=== PATIENT | female | born 1965 | race Caucasian/White ===

== ENCOUNTER 2016-11-30 06:49 | Day surgery (SDC) | payer OTHER ==
[2016-11-29 10:10] VITALS: BMI 27.7
--- NOTE | 2016-11-30 05:37 | HP ---
SHORT STAY HISTORY AND PHYSICAL HISTORY OF PRESENT ILLNESS: This is a 51-year-old female referred to me by Dr. Sylvie Fairchild because of abdominal pain, nausea, and also history of intermittent diarrhea. The patient also has a family history of colon cancer. Apparently, her mother had colon cancer. The patient never had a colonoscopy. The patient's abdominal pain is predominantly in the epigastric area and right upper quadrant. She is status post cholecystectomy. She had an abdominal sonogram which came back negative for any pathology. The patient comes in for an EGD and a colonoscopy because of abdominal pain, nausea, diarrhea, and also a family history of colon cancer. ALLERGIES: PENICILLINS, SULFA. MEDICAL ILLNESSES: 1. Hypothyroidism. 2. Hypertension. 3. Osteoarthritis. 4. History of lupus. 5. Migraines. 6. History of kidney stones. 7. Status post cholecystectomy. 8. Status post splenectomy. 9. Status post hysterectomy. 10. History of left knee replacement. PHYSICAL EXAMINATION: VITAL SIGNS: Pulse is 70, blood pressure 130/70. HEENT: Conjunctivae clear. CARDIOVASCULAR SYSTEM: First and second heart sounds normal. LUNGS: Clear to auscultation. ABDOMEN: Soft to palpate. Abdomen is tender over the epigastric area and also over the right lower quadrant. There is no rebound or guarding. No organomegaly. No masses. Bowel sounds are normal. ADMITTING DIAGNOSES: Abdominal pain, nausea, history of diarrhea. She also has a family history of colon cancer. PLAN: EGD and colonoscopy. MTDD
[2016-11-30] MEDS ORDERED: Vancomycin HCl 500 MG VIAL ONE (08:25)
[2016-11-30] MEDS ORDERED: Vancomycin HCl 500 MG in Sodium Chloride 0.9% 100 ML IVPB SCH (08:30)
[2016-11-30] MEDS ORDERED: Propofol 200 MG/20 ML VIAL ONE (08:56)
[2016-11-30] MEDS ORDERED: Promethazine HCl 25 MG/ML VIAL ONE (09:51)
--- NOTE | 2016-12-01 01:53 | OP ---
DATE OF SURGERY: 11/30/2016 OPERATIVE PROCEDURE: Colonoscopy with biopsy. PREOPERATIVE DIAGNOSES: A 51-year-old female with abdominal pain, diarrhea, and also fami ly history of colon cancer. The patient is undergoing colonoscopy. POSTOPERATIVE DIAGNOSIS: Normal colonoscopy. Random biopsies were obtained with transverse colon, sigmoid colon to rule out microscopic colitis. PROCEDURE IN DETAIL: The patient was placed on her left lateral position and was given sedation by Anesthesia Department. A rectal exam was done before the scope was advanced into the rectum. No le sions felt on rectal exam. A Pentax video colonoscope was introduced into the rectum and advanced a ll the way into the cecum. Ileocecal area, cecum, ascending colon, no pathology seen. The hepatic flexure, transverse colon, splenic flexure, descending colon, sigmoid colon, no lesions seen. Rectu m showed hemorrhoids. Random biopsies from the distal transverse colon, sigmoid colon area.
--- NOTE | 2016-12-01 05:43 | OP ---
ESOPHAGOGASTRODUODENOSCOPIES AND BIOPSIES PREOPERATIVE DIAGNOSIS: Abdominal pain and nausea. POSTOPERATIVE DIAGNOSES: Gastric polyps, multiple indicative of hyperplastic polyp. Otherwise, the exam was normal. PROCEDURE IN DETAIL: The patient was placed on the left lateral position and was given sedation by Anesthesia Department. A Pentax video gastroscope under direct vision was passed down the oropharyn x, past the gastroesophageal junction, into the stomach and subsequently duodenum. The esophageal m ucosa was normal. The GE junction, no pathology seen. Retroflexion failed to show any lesions in t he fundus or cardia. The patient had multiple tiny polyps. Endoscopically, they appeared to be hyp erplastic polyps. Two of them were removed with biopsy forceps. The gastric antrum, no pathology s een. The duodenal bulb and descending duodenum, no pathology seen. The stomach was decompressed an d the scope was removed. DISCHARGE PLANNING: This is a 51-year-old female who came in for an EGD and colonoscopy. The EGD showed gastric polyps. The colonoscopy was basically negative. DISCHARGE RECOMMENDATIONS: 1. The patient advised to call me if she develops abdominal pain, hematochezia. 2. In the absence of any of her symptoms, come back to me next week.
== END 2016-11-30 12:36 | disposition home or self-care (01) ==
LOC: SDC 06:49
PROVIDERS: ATTEND Internal Medicine Gastroenterology
PROC: 0DJD8ZZ Inspection of Lower Intestinal Tract, Via Natural or Artificial Opening Endoscopic (ICD-10-PCS; principal; 2016-11-30)
PROC: 0DB68ZX Excision of Stomach, Via Natural or Artificial Opening Endoscopic, Diagnostic (ICD-10-PCS; principal; 2016-11-30)
DX: K31.7 Polyp of stomach and duodenum (principal); K63.89 Other specified diseases of intestine; K64.9 Unspecified hemorrhoids; E03.9 Hypothyroidism, unspecified; I10 Essential (primary) hypertension; M19.90 Unspecified osteoarthritis, unspecified site; M32.9 Systemic lupus erythematosus, unspecified; G43.909 Migraine, unspecified, not intractable, without status migrainosus; Z90.81 Acquired absence of spleen; Z90.49 Acquired absence of other specified parts of digestive tract; Z90.710 Acquired absence of both cervix and uterus; Z90.89 Acquired absence of other organs; Z96.653 Presence of artificial knee joint, bilateral; Z87.442 Personal history of urinary calculi; Z80.0 Family history of malignant neoplasm of digestive organs
CPT/HCPCS: 88305; 88312; 96374; 96375; J2550; J2704; J3370

== ENCOUNTER 2017-10-31 07:58 | Outpatient (CLI) | payer OTHER ==
--- NOTE | 2017-10-31 10:37 | ULT ---
ULTRASOUND ABDOMEN: Date: 10/31/17 HISTORY: Elevated LFTs. FINDINGS: Comparison made with exam of 11/24/16. The liver demonstrates increased echogenicity consistent with fatty infiltration. No focal mass or in trahepatic ductal dilatation is seen. The patient is status post cholecystectomy and splenectomy. The common duct measures 5.0 mm in diameter. The pancreas is not well visualized due to overlying bowel gas. The visualized portions of the aorta and IVC are normal. No hydronephrosis seen on either side. There is a 1.8 cm complex cyst arising from the left kidney. No free fluid is seen. IMPRESSION: 1. Fatty liver. 2. Status post cholecystectomy and splenectomy. 3. Complex 1.8 cm left renal cyst. This should be evaluated with CT scan (with and without IV contra st). POS: OFF
== END 2017-10-31 07:59 | disposition home or self-care (01) ==
LOC: SCSULT 07:58
PROVIDERS: ATTEND Physician Assistant
DX: R79.89 Other specified abnormal findings of blood chemistry (principal); K76.0 Fatty (change of) liver, not elsewhere classified; N28.1 Cyst of kidney, acquired; Z90.49 Acquired absence of other specified parts of digestive tract; Z90.81 Acquired absence of spleen
CPT/HCPCS: 76700

== ENCOUNTER 2017-11-28 20:52 | Emergency (ER) | payer OTHER ==
[2017-11-28] MEDS ORDERED: Fentanyl 100 MCG/2 ML VIAL ONE (21:31)
[2017-11-28] MEDS ORDERED: Lorazepam 2 MG/ML VIAL ONE (21:31)
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
== END 2017-11-28 23:59 | disposition home or self-care (01) ==
LOC: ERS 20:52
DX: M48.02 Spinal stenosis, cervical region (principal); G89.29 Other chronic pain; M54.2 Cervicalgia; E03.9 Hypothyroidism, unspecified; E78.5 Hyperlipidemia, unspecified; F17.210 Nicotine dependence, cigarettes, uncomplicated; Z79.899 Other long term (current) drug therapy
CPT/HCPCS: 72141; 96372; J2060; J3010

== ENCOUNTER 2018-03-03 09:30 | Day surgery (SDC) | payer OTHER ==
[2018-03-02 11:01] VITALS: BMI 29.2
[2018-03-03] MEDS ORDERED: CEFAZOLIN 2 GM/50 ML BAG ONE (10:25)
[2018-03-03 10:35] LABS: Hemoglobin 15.3 g/dL (12.0-16.0); Mean Corpuscular HGB CONC 33.2 g/dL (32.0-36.0); Mean Corpuscular Hemoglobin 32.6 pg (27.0-31.0); Mean Corpuscular Volume 98.1 fL (78.0-98.0); Mean Platelet Volume 6.9 fL (7.4-10.4); Platelet Count 482 thou/uL (130-400); RBC Distribution Width 11.5 % (11.5-14.5); Red Blood Cell (RBC) Count 4.71 mill/uL (4.20-5.40); White Blood Cell (WBC) Count 9.4 thou/uL (4.8-10.8)
[2018-03-03] MEDS ORDERED: Fentanyl 100 MCG/2 ML VIAL ONE ×5 (10:41→14:47)
[2018-03-03 10:54] LABS: Anion Gap 11 mmol/L (10-20); BUN (Urea Nitrogen) 17 mg/dL (9.8-20.1); Calc. Creatinine Clearance 125 mL/min (70-130); Calcium 9.2 mg/dL (7.8-10.44); Carbon Dioxide 27 mmol/L (22-29); Chloride 108 mmol/L (98-107); Estimated GFR-MDRD 82; Glucose 98 mg/dL (70-105); Potassium 4.1 mmol/L (3.5-5.1); Sodium 142 mmol/L (136-145)
[2018-03-03] MEDS ORDERED: Midazolam HCl 2 mg/2 ml Vial ONE (12:20)
[2018-03-03] MEDS ORDERED: Sodium Chloride 0.9% 10 ML ONE (12:35)
[2018-03-03] MEDS ORDERED: Ketorolac Tromethamine 30 MG/ML VIAL ONE (14:47)
[2018-03-03] MEDS ORDERED: Promethazine HCl 25 MG/ML VIAL ONE (14:58)
--- NOTE | 2018-03-03 16:25 | OP ---
DATE OF PROCEDURE: 03/03/2018 [employer] REPRESENTATIVE: Nic. PROCEDURES PERFORMED: Anterior cervical diskectomy C5-C6, interbody arthrodesis, intervertebral Biomechanical device, local morselized autograft, demineralized bone matrix, anterior-titanium instrumentation, C5-C6. DESCRIPTION OF PROCEDURE: The patient was brought to the operating room and intubated. She was positioned supine with the head in modest extension on a gel-filled donut. An incision was made in the right precervical and dissecting medial to the sternocleidomastoid muscle, identifying the anterior cervical spinal, and the level was confirmed by x-ray. We placed distraction across C5-C6, and using operative microscope and microdissection techniques, completely compressed the intervertebral disk from foramen to foramen at C5-C6. Bony endplates then decorticated for the purpose of arthrodesis and appropriate-sized intervertebral biomechanical PEEK device was brought on the field and filled with demineralized bone matrix and local morselized autograft, and tapped into place securely at C5-C6. Next, an anterior plate was brought into the field and secured to C5 and C6 using two 14-mm screws at each level. The wound was then extensively irrigated and maximum hemostasis was secured, and the wound was closed in anatomic layers. Job ID: [id number]
[2018-03-03] MEDS ORDERED: Ondansetron PF 4 MG/2 ML Vial ONE (20:29)
[2018-03-03] MEDS ORDERED: Dexamethasone 20 MG/5 ML VIAL ONE (20:29)
[2018-03-03] MEDS ORDERED: PROPOFOL 200 MG/20 ML VIAL ONE (20:29)
== END 2018-03-03 16:33 | disposition home or self-care (01) ==
LOC: SDC 09:30
PROVIDERS: ATTEND Neurological Surgery
PROC: 0RB30ZZ Excision of Cervical Vertebral Disc, Open Approach (ICD-10-PCS; principal; 2018-03-03)
PROC: 0RG10A0 Fusion of Cervical Vertebral Joint with Interbody Fusion Device, Anterior Approach, Anterior Column, Open Approach (ICD-10-PCS; principal; 2018-03-03)
PROC: 0RG1070 Fusion of Cervical Vertebral Joint with Autologous Tissue Substitute, Anterior Approach, Anterior Column, Open Approach (ICD-10-PCS; principal; 2018-03-03)
PROC: 0RG10J0 Fusion of Cervical Vertebral Joint with Synthetic Substitute, Anterior Approach, Anterior Column, Open Approach (ICD-10-PCS; principal; 2018-03-03)
DX: M50.122 Cervical disc disorder at C5-C6 level with radiculopathy (principal); K21.9 Gastro-esophageal reflux disease without esophagitis; Z88.0 Allergy status to penicillin; Z88.2 Allergy status to sulfonamides; Z88.8 Allergy status to other drugs, medicaments and biological substances
CPT/HCPCS: 36415; 76001; 80048; 85027; 93005; 93010; 96374; C1713; C1768; C1776; J1100; J1885; J2250; J2405; J2550; J2704; J3010; J3490

== ENCOUNTER 2018-03-17 09:03 | Outpatient (CLI) | payer OTHER ==
--- NOTE | 2018-03-17 10:57 | RAD ---
CERVICAL SPINE 3 VIEWS: DATE: 03/17/2018. COMPARISON: None. HISTORY: Cervical spine pain, reevaluate cervical spine following surgery. FINDINGS: Open mouth odontoid view demonstrates a normal-appearing dens in C1-2 articulation. There is lateral osteophyte formation noted bilaterally of the C1-2 articulation. There is anterior diskectomy and fu junito hardware at C5-6, new when compared to a cervical spine MRI performed 11/28/2017. There is diffu se soft tissue swelling involving the prevertebral space suggesting nonspecific soft tissue swelling associated with recent surgery. Clinical correlation is essential. There is no significant anteroli sthesis or retrolisthesis. No evidence for hardware failure. Frontal imaging demonstrates prominent multilevel left-sided facet and uncovertebral osteophyte forma tion, most prominent at C4-5, C5-6, and C6-7. IMPRESSION: Postoperative and degenerative changes of the cervical spine. Nonspecific diffuse prevertebral soft tissue swelling for which followup imaging is advised. POS: [facility]
== END 2018-03-17 09:04 | disposition home or self-care (01) ==
LOC: TBSIIMAG 09:03
PROVIDERS: ATTEND Neurological Surgery
DX: M54.2 Cervicalgia (principal); M47.812 Spondylosis without myelopathy or radiculopathy, cervical region; M79.89 Other specified soft tissue disorders; Z98.890 Other specified postprocedural states
CPT/HCPCS: 72040

== ENCOUNTER 2018-04-26 14:10 | Outpatient (CLI) | payer OTHER ==
--- NOTE | 2018-04-26 16:23 | RAD ---
THREE VIEWS OF CERVICAL SPINE: Date: 04-26-18 Comparison: 03-17-18 History: Cervical disc degeneration, history of lupus. FINDINGS: There is multilevel cervical spine facet and uncal vertebral osteophyte formation, left greater than right, most prominent at the C4-5, C5-6, and C6-7 levels. Anterior discectomy and fusion hardware is present at C5-6, stable. There is no anterolisthesis or retrolisthesis. No prevertebral soft tissue s welling. Mild disc space narrowing at C3-4. IMPRESSION: Grossly unchanged degenerative change within the cervical spine as detailed above. Soft tissue promin ence in the prevertebral space seen on the prior examination has improved. POS: [facility]
== END 2018-04-26 14:11 | disposition home or self-care (01) ==
LOC: TBSIIMAG 14:10
PROVIDERS: ATTEND Neurological Surgery
DX: M50.30 Other cervical disc degeneration, unspecified cervical region (principal); M47.812 Spondylosis without myelopathy or radiculopathy, cervical region
CPT/HCPCS: 72040

== ENCOUNTER 2019-02-13 07:43 | Outpatient (CLI) | payer OTHER ==
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
--- NOTE | 2019-02-13 12:15 | MRI ---
MRI LUMBAR SPINE WITHOUT CONTRAST: HISTORY: Chronic low back pain. COMPARISON: None. FINDINGS: Appropriate T1 marrow signal intensity of the lumbar vertebrae. Lumbar spine vertebral body height is maintained. No fracture. No significant STIR hyperintensity to suggest vertebral body edema or ligamentous injury. Mild straightening of normal lumbar lordosis may be positional. Appropriate signal intensity of the visualized paraspinal muscles. Appropriate signal intensity of th e visualized solid organs. Conus medullaris terminates at the upper aspect of L1. T12-L1: Adequate disc hydration. No significant central canal stenosis or significant neural foramina l narrowing. L1-L2: Adequate disc hydration. No significant central canal stenosis or significant neural foraminal . L2-L3: Minimal disc desiccation. Minimal broad-based disc bulge with a central and right subarticular component. Minimal stenosis of the thecal sac. Bilaterally the neural foramina are patent. L3-L4: Minimal disc desiccation with minimal broad-based disc bulge abutting the thecal sac. Minimal encroachment upon both subarticular zones. Disc material abuts but does not obscure either traversing L4 nerve root. Mild ligament flavum thickening and facet hypertrophy. Overall mild central canal stenosis. Bilaterally the neural foramina are patent. L4-L5: Adequate disc hydration. No significant loss of disc space height. Broad-based disc bulge, lig amentum flavum thickening and facet hypertrophy result in mild central canal stenosis. Bilaterally the neural foramina are patent. L5-S1: Minimal desiccation without significant loss of disc space height. Broad-based disc bulge. Dis c material abuts and partially displaces the traversing right S1 nerve root. Disc material makes contact with but does not cause any mass effect or displacement of the traversing left S1 nerve root. No significant stenosis of the thecal sac. Mild ligament flavum thickening and facet hypertrophy. Small amount of fluid in both facet joints. Mild bilateral foraminal narrowing. IMPRESSION: 1. No significant central canal stenosis throughout the lumbar spine. Multiple levels of mild central canal stenosis as described above. 2. Mild narrowing of the right subarticular zone secondary to disc material. Disc material abuts and slightly displaces the traversing right S1 nerve root. Transcribed Date/Time: 02/13/2019 12:25 PM
== END 2019-02-13 07:44 | disposition home or self-care (01) ==
LOC: SCSMRI 07:43
PROVIDERS: ATTEND Neurological Surgery
DX: M47.12 Other spondylosis with myelopathy, cervical region (principal); M47.22 Other spondylosis with radiculopathy, cervical region; M54.16 Radiculopathy, lumbar region; M48.061 Spinal stenosis, lumbar region without neurogenic claudication; M48.07 Spinal stenosis, lumbosacral region; Z98.1 Arthrodesis status
CPT/HCPCS: 72141; 72148

== ENCOUNTER 2022-03-16 15:53 | Outpatient (CLI) | payer OTHER, MEDICARE | END 2022-03-16 15:54 | disposition home or self-care (01) | LOC: SCSRAD 15:53 | PROVIDERS: ATTEND Internal Medicine Rheumatology | DX: R07.81 Pleurodynia (principal); Z79.899 Other long term (current) drug therapy ==

== ENCOUNTER 2022-12-22 12:44 | Outpatient (CLI) | payer MEDICARE, OTHER | END 2022-12-22 12:45 | disposition home or self-care (01) | LOC: SCSRAD 12:44 | PROVIDERS: ATTEND Internal Medicine Rheumatology | DX: M46.1 Sacroiliitis, not elsewhere classified (principal) | CPT/HCPCS: 72202 ==